=== PATIENT | female | born 1955 | race Caucasian/White ===

== ENCOUNTER 2022-10-12 20:01 | Emergency (ER) | payer MEDICAID, SELFPAY ==
--- NOTE | 2022-10-12 | ECG_ITS ---
Test Reason : PALPATIONS Blood Pressure : / mmHG Vent. Rate : 098 BPM Atrial Rate : 098 BPM P-R Int : 132 ms QRS Dur : 084 ms QT Int : 370 ms P-R-T Axes : 064 -13 024 degrees QTc Int : 472 ms Normal sinus rhythm Cannot rule out Anterior infarct , age undetermined Abnormal ECG No previous ECGs available Referred By: Generic ED Physician Electronically Signed By:ANGELES BARRON MD
--- NOTE | 2022-10-12 20:14 | ED.ARRPALP ---
HPI - Arrhythmia/Palpitations General Chief Complaint: General Medical Stated Complaint: palputation/anxiety Time Seen by Provider: 10/12/22 20:04 Source: patient Mode of arrival: EMS Limitations: no limitations History of Present Illness HPI narrative: Patient with history of anxiety, panic attack used to be on Klonopin for last 4 years moved to [place] from [place] 3 months ago unable to get the medication filled been having frequent panic attack with palpitation episodes patient just had a panic attack with palpitation prior to arrival feeling much better now heart rate is 90s now. No shortness of breath no fever or chills Related Data Previous Rx's Medication Instructions Recorded clonazepam 0.5 mg tablet (Klonopin) 0.5 mg PO BEDTIME #30 tabs 10/12/22 gemfibrozil 600 mg tablet (Lopid) 600 mg PO BID #60 tabs 10/12/22 omeprazole 20 mg capsule,delayed 20 mg PO DAILY #30 caps 10/12/22 release simvastatin 10 mg tablet 10 mg PO BEDTIME #30 tabs 10/12/22 Allergies Allergy/AdvReac Type Severity Reaction Status Date / Time No Known Allergies Allergy Unverified 06/29/20 19:36 [No Known Allergies*] Review of Systems Review of Systems: Yes all other systems are reviewed and are negative PMFSH Social History Social History Advance Directives: No Advance Directives Information Provided: No Physical Exam Vital Signs: Vital Signs: Last Vital Signs Temp 97.9 F 10/12/22 21:41 Pulse 84 10/12/22 21:41 Resp 16 10/12/22 21:41 BP 144/73 H 10/12/22 21:41 Pulse Ox 97 10/12/22 21:41 O2 Del Method 10/12/22 21:41 BMI result Body Mass Index 25.0 Appearance: Alert. Oriented X3. No acute distress. Anxious Eyes: No pallor ENT: Pharynx normal. Oral Mucosa moist Neck: Normal inspection. Neck supple. CVS: Normal heart rate and rhythm. Pulses normal. Respiratory: No respiratory distress. Equal air entry bilateral, no wheezing/rales/rhonchi Abdomen: Soft and nontender. Bowel sounds are present, no mass palpable, no CVA tenderness Skin: Skin warm and dry. Normal skin color. Normal skin turgor. Extremities: No lower extremity edema. No calf tenderness Neuro: Oriented X 3. No motor deficit. Medications Administered Discontinued Medications Generic Name Dose Route Start Last Admin Trade Name Anastasia PRN Reason Stop Dose Admin Clonazepam 0.5 mg 10/12/22 20:37 10/12/22 21:19 Clonazepam 0.5 Mg Tablet PO 10/12/22 20:38 0.5 mg ONCE ONE Administration Medical Decision Making Medical Decision Making [facility] Narrative: Patient panic/anxiety attacks basic lab workup negative EKG without any arrhythmia patient used to be on Klonopin for last 4 years ran out of it for last 3 months after arrival to [place] will discharge patient home on Klonopin advised to follow with PCP Lab Data [facility] Lab Attestation statement: I reviewed the patient's lab results. Result Diagrams: 10/12/22 20:36 10/12/22 20:36 Labs: Lab Results 10/12/22 10/12/22 10/12/22 Range/Units 20:36 20:36 20:36 WBC 9.1 (4.8-10.8) X10*3/uL RBC 4.48 (4.20-5.50) X10*6/uL Hgb 13.0 (12.0-16.0) g/dl Hct 38.8 (37.0-47.0) % MCV 86.6 (80.0-98.0) fL MCH 29.0 (27.0-33.0) pg MCHC 33.5 (31.0-35.0) g/dl RDW 13.7 (11.0-16.0) % Plt Count 277 (160-400) X10*3/uL MPV 11.6 (9.4-12.3) fL Immature Gran % (Auto) 0.3 (0.0-0.4) % Neut % (Auto) 79.0 H (45-73) % Lymph % (Auto) 14.3 L (20-40) % [place] % (Auto) 5.7 (2-11) % Eos % (Auto) 0.2 (0-4) % Baso % (Auto) 0.5 (0-2) % Lymph # (Auto) 1.3 (1.2-4.9) X10*3/uL [place] # (Auto) 0.5 (0.1-1.2) X10*3/uL Eos # (Auto) 0.0 (0.0-0.4) X10*3/uL Baso # (Auto) 0.1 (0.0-0.2) X10*3/uL Abs Immat Gran (auto) 0.03 (0.00-0.03) X10*3/uL Absolute Neuts (auto) 7.2 (2.0-8.3) x10*3/uL Absolute Nucleated RBC 0.000 (0.0-0.012) X10*3/uL Nucleated RBC % (auto) 0.0 (0.0-0.2) /100WBC Sodium 142 (135-145) mmol/L Potassium 3.3 (3.3-5.1) mmol/L Chloride 108 (96-108) mmol/L Carbon Dioxide 23 (22-29) mmol/L Anion Gap 14 (12-20) BUN 11 (9-16) mg/dL Creatinine 0.75 (0.5-1.4) mg/dL Estim Creat Clear Calc TNP Estimated GFR > 60 Random Glucose 213 H (60-115) mg/dL Calcium 9.2 (8.4-10.2) mg/dL Troponin I High Sens < 3.5 (<3.5-17.0) ng/L COVID-19 (FRANKO) (Negative) COVID-19 Clin Com 10/12/22 Range/Units 20:36 WBC (4.8-10.8) X10*3/uL RBC (4.20-5.50) X10*6/uL Hgb (12.0-16.0) g/dl Hct (37.0-47.0) % MCV (80.0-98.0) fL MCH (27.0-33.0) pg MCHC (31.0-35.0) g/dl RDW (11.0-16.0) % Plt Count (160-400) X10*3/uL MPV (9.4-12.3) fL Immature Gran % (Auto) (0.0-0.4) % Neut % (Auto) (45-73) % Lymph % (Auto) (20-40) % [place] % (Auto) (2-11) % Eos % (Auto) (0-4) % Baso % (Auto) (0-2) % Lymph # (Auto) (1.2-4.9) X10*3/uL [place] # (Auto) (0.1-1.2) X10*3/uL Eos # (Auto) (0.0-0.4) X10*3/uL Baso # (Auto) (0.0-0.2) X10*3/uL Abs Immat Gran (auto) (0.00-0.03) X10*3/uL Absolute Neuts (auto) (2.0-8.3) x10*3/uL Absolute Nucleated RBC (0.0-0.012) X10*3/uL Nucleated RBC % (auto) (0.0-0.2) /100WBC Sodium (135-145) mmol/L Potassium (3.3-5.1) mmol/L Chloride (96-108) mmol/L Carbon Dioxide (22-29) mmol/L Anion Gap (12-20) BUN (9-16) mg/dL Creatinine (0.5-1.4) mg/dL Estim Creat Clear Calc Estimated GFR Random Glucose (60-115) mg/dL Calcium (8.4-10.2) mg/dL Troponin I High Sens (<3.5-17.0) ng/L COVID-19 (FRANKO) Negative (Negative) COVID-19 Clin Com See Note Independent Interpretation I performed an independent interpretation of an: EKG Interpretation: Normal sinus rhythm heart rate 98 beats per minute normal tone normal axis no acute ST wave changes no acute ischemia Discharge Plan Discharge Clinical Impression: Panic attack, Palpitations Patient Disposition: Home, Self-Care Instructions: Heart Palpitations (ED), Panic Disorder (ED) Additional Instructions: Rest at home Take medication as prescribed and follow with PCP Prescriptions: New gemfibrozil [Lopid] 600 mg tablet 600 mg PO BID Qty: 60 0RF simvastatin 10 mg tablet 10 mg PO BEDTIME Qty: 30 0RF clonazepam [Klonopin] 0.5 mg tablet 0.5 mg PO BEDTIME Qty: 30 0RF Rx Instructions: administer 30 minutes before bedtime omeprazole 20 mg capsule,delayed release(DR/EC) 20 mg PO DAILY Qty: 30 0RF Print Language: Niue[place]
[2022-10-12 20:42] LABS: MANUAL DIFF FLAG NO
[2022-10-12 20:55] LABS: Anion Gap 14 (12-20); Basophils Absolute Auto 0.1 X10*3/uL (0.0-0.2); Basophils Percent Auto 0.5 % (0-2); Blood Urea Nitrogen 11 mg/dL (9-16); Calcium 9.2 mg/dL (8.4-10.2); Carbon Dioxide 23 mmol/L (22-29); Chloride 108 mmol/L (96-108); Eosinophils Percent Auto 0.2 % (0-4); Estimated Glomerular Filt Rate > 60; Glucose Random 213 mg/dL (60-115); Hematocrit 38.8 % (37.0-47.0); Imm Gran Abs Auto 0.03 X10*3/uL (0.00-0.03); Imm Gran Pct Auto 0.3 % (0.0-0.4); Lymphocytes Absolute Auto 1.3 X10*3/uL (1.2-4.9); Lymphocytes Percent Auto 14.3 % (20-40); Mean Corpuscular HGB Conc 33.5 g/dl (31.0-35.0); Mean Corpuscular Volume 86.6 fL (80.0-98.0); Mean Platelet Volume 11.6 fL (9.4-12.3); Monocytes Absolute Auto 0.5 X10*3/uL (0.1-1.2); Monocytes Percent Auto 5.7 % (2-11); Neutrophils Absolute Auto 7.2 x10*3/uL (2.0-8.3); Platelet Count 277 X10*3/uL (160-400); Potassium 3.3 mmol/L (3.3-5.1); Red Blood Count 4.48 X10*6/uL (4.20-5.50); Red Cell Distribution Width 13.7 % (11.0-16.0); Sodium 142 mmol/L (135-145); White Blood Count 9.1 X10*3/uL (4.8-10.8)
[2022-10-12 20:58] VITALS: BMI 25.0
[2022-10-12 20:59] LABS: COVID-19 Test Negative (Negative); IDNOW Serial# 6674DD1D
[2022-10-12 21:07] LABS: Troponin-I High Sensitivity < 3.5 ng/L (<3.5-17.0)
[2022-10-12] MEDS: clonazePAM 0.5 MG TABLET PO (21:19)
[2022-10-12 21:41] VITALS: BP 144/73; PULSE 84; RESP 16; TEMP 36.6; O2SAT 97
== END 2022-10-12 22:27 | disposition home or self-care (01) ==
PROVIDERS: Emergency Provider Internal Medicine
DX: F41.0 Panic disorder [episodic paroxysmal anxiety] (principal); R00.2 Palpitations; Z20.822 Contact with and (suspected) exposure to COVID-19
CPT/HCPCS: 36415; 80048; 84484; 85025; 87635; 93005; 99283; 99284